=== PATIENT | male | born 1935 | race Caucasian/White ===

== ENCOUNTER 2016-11-09 16:17 | Emergency (ER) | payer OTHER ==
[~2016-11-09] VITALS: Ht 167.6 cm; Wt 63.0 kg
[~2016-11-09 16:17] MED LIST: AMLODIPINE BESY10 MG PO; CALCIUM 500 MG1 EACH PO; DOCUSATE SODIU100 MG PO; ELIQUIS2.5 MG PO; FORTEO20 MICROGR SC; LEVOFLOXACIN500 MG PO; LEVOFLOXACIN750 MG PO; LISINOPRIL40 MG PO; MAGNESIUM OXID500 MG PO; MIRALAX255 GM PO; MULTIVITAMIN1 EAC2 PO; PROLIA60 MG/1 ML SC; PROSTATE SR SO1 EACH PO; VICODIN 5-3001 EACH PO; VITAMIN D31000 UNI2 PO
[2016-11-09 17:23] LABS: ADD MIUA? YES; BILIRUBIN NEGATIVE; BLOOD NEGATIVE; COLOR YELLOW ((YELLOW)); GLUCOSE (STRIP) NEGATIVE; KETONES NEGATIVE; LEUKOCYTES TRACE; NITRITE NEGATIVE; PH, URINE 7.5 (5-8); PROTEIN (STRIP) TRACE; SPECIFIC GRAVITY 1.018 (1.000-1.030); UROBILINOGEN 0.2 MG/DL (0.2-1.0)
[2016-11-09 17:31] LABS: HEMATOCRIT 37.1 % (38.0-50.0); MCH 29.1 PG (29.0-34.0); MCHC 33.4 G/DL (30.0-36.0); MCV 87.1 FL (86-99); MEAN PLAT.VOLUME 9.8 uM^3 (9.0-12.4); PLATELET COUNT 211 K/uL (156-360); RBC DIS.WIDTH-CV 12.9 % (11.8-14.6); RBC DIS.WIDTH-SD 40.7 % (39-53); RED BLOOD COUNT 4.26 M/uL (4.00-5.50); WHITE BLOOD COUNT 5.1 K/uL (4.1-10.2)
[2016-11-09 17:39] LABS: CHLORIDE 105 mEq/L (99-109); POTASSIUM 3.9 mEq/L (3.7-5.4); SODIUM 140 mEq/L (136-147)
[2016-11-09 17:41] LABS: GLUCOSE 99 mg/dL (70-99)
[2016-11-09 17:42] LABS: ANION GAP 9 MEQ/L (2-14)
[2016-11-09 17:43] LABS: TOTAL BILIRUBIN 0.7 mg/dL (0.0-1.0)
[2016-11-09 17:44] LABS: ALKALINE PHOSPHATASE 64 IU/L (3-129)
[2016-11-09 17:45] LABS: GFR ESTIMATE (CALCULATED) 41 mL/min/
[2016-11-09 17:46] LABS: UREA NITROGEN (BUN) 26 mg/dL (9-23)
[2016-11-09 18:16] LABS: BACTERIA 2+; CASTS PRESENT /LPF; CRYSTALS PRESENT; EPITHELIAL CELLS 1+; HYALINE CASTS 0-5 /LPF; MUCUS 1+; RED BLOOD CELLS 0-5 /HPF (0-5); UCUL ADDED? YES
[2016-11-09 18:17] LABS: AMORPHOUS PHOSPHATE CRYSTALS 1+; CALCIUM OXALATE CRYSTALS 1+
[2016-11-09] MEDS ORDERED: CIPRO500 MG PO (18:48)
[2016-11-09] MEDS ORDERED: FLOMAX0.4 MG PO (18:48)
[2016-11-09 19:34] VITALS: BP 157/78
== END 2016-11-09 19:36 | disposition home or self-care (01) ==
LOC: EME 16:17
PROC: 0T9B70Z Drainage of Bladder with Drainage Device, Via Natural or Artificial Opening (ICD-10-PCS; principal; 2016-11-09)
DX: N39.0 Urinary tract infection, site not specified (principal); I10 Essential (primary) hypertension; K21.9 Gastro-esophageal reflux disease without esophagitis; Z96.642 Presence of left artificial hip joint
CPT/HCPCS: 80053; 81003; 85027; 87086; 99281; 99285

== ENCOUNTER 2018-05-15 22:03 | Emergency (ER) | payer OTHER ==
[~2018-05-15] VITALS: Ht 170.2 cm; Wt 61.8 kg
[~2018-05-15 22:03] MED LIST changes: +CIPRO500 MG PO; +FLOMAX0.4 MG PO
[2018-05-16 01:00] LABS: HEMATOCRIT 36.6 % (38.0-50.0); HEMOGLOBIN 12.4 G/DL (12.5-16.6); MCH 29.7 PG (29.0-34.0); MCHC 33.9 G/DL (30.0-36.0); MCV 87.6 FL (86-99); PLATELET COUNT 142 K/uL (156-360); RBC DIS.WIDTH-SD 44.9 % (39-53); RED BLOOD COUNT 4.18 M/uL (4.00-5.50); WHITE BLOOD COUNT 6.5 K/uL (4.1-10.2)
[2018-05-16 01:07] LABS: CHLORIDE 112 mEq/L (99-109); POTASSIUM 4.2 mEq/L (3.7-5.4); SODIUM 143 mEq/L (136-147)
[2018-05-16 01:09] LABS: GLUCOSE 96 mg/dL (70-99)
[2018-05-16 01:13] LABS: CREATININE 1.5 mg/dL (0.6-1.3); GFR ESTIMATE (CALCULATED) 48 mL/min/ (58.99-99999)
[2018-05-16 01:14] LABS: UREA NITROGEN (BUN) 40 mg/dL (9-23)
[2018-05-16 01:22] LABS: INTER. NORMALIZED RATIO 1.2
[2018-05-16 01:25] LABS: PTT 31.6 SEC (25-37)
[2018-05-16 01:54] LABS: APPEARANCE CLEAR ((CLEAR)); BILIRUBIN NEGATIVE; BLOOD NEGATIVE; COLOR YELLOW ((YELLOW)); GLUCOSE (STRIP) NEGATIVE; KETONES NEGATIVE; LEUKOCYTES NEGATIVE; NITRITE NEGATIVE; PROTEIN (STRIP) NEGATIVE; SPECIFIC GRAVITY 1.017 (1.000-1.030); UROBILINOGEN 0.2 MG/DL (0.2-1.0)
[2018-05-16] MEDS ORDERED: LIDODERM 5% P1 PATCH TD (05:13)
[2018-05-16] MEDS ORDERED: PREDNISONE20 MG PO (05:13)
[2018-05-16] MEDS ORDERED: VALIUM2 MG PO (05:13)
[2018-05-16] MEDS ORDERED: PERCOCET 5/31 TABLET PO (05:13)
[2018-05-16] MEDS ORDERED: MIRALAX255 GM PO (05:15)
[2018-05-16 05:45] VITALS: BP 152/99
== END 2018-05-16 05:45 | disposition home or self-care (01) ==
LOC: EME 22:03
PROVIDERS: Physician Assistant
DX: M51.36 Other intervertebral disc degeneration, lumbar region (principal); S39.92XA Unspecified injury of lower back, initial encounter; N40.0 Benign prostatic hyperplasia without lower urinary tract symptoms; K56.41 Fecal impaction; K59.00 Constipation, unspecified; I10 Essential (primary) hypertension; S51.812A Laceration without foreign body of left forearm, initial encounter; X58.XXXA Exposure to other specified factors, initial encounter; Y93.89 Activity, other specified; K21.9 Gastro-esophageal reflux disease without esophagitis; M81.0 Age-related osteoporosis without current pathological fracture; Z85.828 Personal history of other malignant neoplasm of skin; Z96.642 Presence of left artificial hip joint; Z88.2 Allergy status to sulfonamides; Z88.0 Allergy status to penicillin
CPT/HCPCS: 72132; 74174; 80048; 81003; 85027; 85610; 85730; 99281; 99285; J1100; J3010; J7030; J7040